=== PATIENT | female | born 1945 | race American Indian/Alaskan Native ===

== ENCOUNTER 2018-10-21 19:26 | Inpatient (IN) | payer SELFPAY ==
--- NOTE | 2018-10-21 20:05 | C.PDOC ---
History Of Present Illness 73 year old female presents to the ED c/o dizziness associated with a couple of falls for the past 2 weeks. Patient is non insulin dependent diabetic with history of previous strokes with residual mild right sided weakness. Patient is visiting from [place]. Patient denies fever, chills, nausea, vomit, headache, LOC, numbness, CP, SOB, palpitations. Time Seen by Provider: 10/21/18 20:05 Chief Complaint (Nursing): Dizziness/Lightheaded History Per: Patient History/Exam Limitations: no limitations Onset/Duration Of Symptoms: Days Current Symptoms Are (Timing): Still Present Associated Symptoms Preceding Syncopal Episode: No Predromal Symptoms (Sudden Onset) Seizure Or Post-ictal Symptoms: None Possible Causative Factor(s): denies: New Medications Fall Associated With With Symptoms: Yes Severity: None Recent travel outside of the [place]: No Additional History Per: Patient, Family - Symptoms Of CVA Associated Symptoms: Decreased Ability To Walk Current Coumadin Use?: No Past Medical History Reviewed: Historical Data, Nursing Documentation, Vital Signs Vital Signs: Last Vital Signs Temp 97 F L 10/21/18 19:39 Pulse 65 10/21/18 19:39 Resp 14 10/21/18 19:39 BP 150/63 10/21/18 19:39 Pulse Ox 97 10/21/18 19:39 - Medical History PMH: HTN, Hypercholesterolemia Surgical History: No Surg Hx Family History: States: Unknown Family Hx - Social History Hx Alcohol Use: No Hx Substance Use: No - Immunization History Hx Tetanus Toxoid Vaccination: Yes Hx Influenza Vaccination: Yes Hx Pneumococcal Vaccination: Yes Review Of Systems Constitutional: Negative for: Fever, Chills Eyes: Negative for: Vision Change Cardiovascular: Negative for: Chest Pain, Palpitations Respiratory: Negative for: Cough, Shortness of Breath Gastrointestinal: Negative for: Nausea, Vomiting, Abdominal Pain Musculoskeletal: Negative for: Back Pain Skin: Negative for: Rash Neurological: Positive for: Weakness, Dizziness. Negative for: Numbness, Headache Psych: Negative for: Anxiety Physical Exam - Physical Exam Appears: Non-toxic, No Acute Distress Skin: Warm, Dry Head: Normacephalic Eye(s): bilateral: Normal Inspection Teeth: No Normal Dentition (poor dentition) Neck: Supple Chest: Symmetrical Cardiovascular: Rhythm Regular Respiratory: No Rales, No Rhonchi, No Wheezing Gastrointestinal/Abdominal: Soft, No Tenderness, No Guarding, No Rebound Back: Normal Inspection Extremity: No Tenderness Extremity: Bilateral: Atraumatic, Normal Color And Temperature Pulses: Left Dorsalis Pedis: Normal, Right Dorsalis Pedis: Normal Neurological/Psych: Oriented x3, Normal Speech, Normal Cognition, Normal Motor (right sided weakness baseline), Normal Sensation Gait: With Assistance ED Course And Treatment - Laboratory Results Result Diagrams: 10/21/18 20:14 10/21/18 20:14 ECG: Interpreted By Me, Viewed By Me ECG Rhythm: Sinus Rhythm (65), Nonspecific Changes O2 Sat by Pulse Oximetry: 97 Pulse Ox Interpretation: Normal - Radiology CXR: Interpreted by Me, Viewed By Me CXR Interpretation: No: Infiltrates, Fracture, Pnemothorax - CT Scan/US CT head Other Rad Studies (CT/US): Read By Radiologist, Radiology Report Reviewed CT/US Interpretation: EXAM: CT Head without Intravenous Contrast. CLINICAL HISTORY: Dizzy. TECHNIQUE: Axial computed tomography images of the head/brain without intravenous contrast. 0.00 mGy-cm. COMPARISON: None provided. FINDINGS: BRAIN. Chronic periventricular and subcortical microvascular disease is seen. VENTRICLES: There is generalized parenchymal atrophy noted as demonstrated by symmetrical dilatation of ventricles and sulci. ORBITS: The orbits are unremarkable. SINUSES AND MASTOIDS: The paranasal sinuses and mastoid air cells are clear. BONES: No fracture. SOFT TISSUES: Unremarkable. MISCELLANEOUS: No acute intracranial pathology. IMPRESSION: 1. There is generalized parenchymal atrophy noted as demonstrated by symmetrical dilatation of ventricles and sulci. 2. Chronic periventricular and subcortical microvascular disease is seen. 3. No acute intracranial pathology. . Electronically signed on Oct 21, 2018 8:45:03 PM EST by: Cy Ayala M.D., SANDRA Certified By ABR & CBCCT. Fellowship Trained MRI and CT Specialist Progress Note: Plan: - Labs. - CXR. - UA Disposition Discussed With : Aron Riley Comment: accepted the pt on his service and took over the care at 9:33 PM Doctor Will See Patient In The: ED Counseled Patient/Family Regarding: Studies Performed, Diagnosis - Disposition Disposition: HOSPITALIZED Disposition Time: 20:05 Condition: FAIR Forms: [facility] (Hebrew) - POA Present On Arrival: None - Clinical Impression Clinical Impression: Dizziness, Near syncope - Scribe Statement The provider has reviewed the documentation as recorded by the Scribe Danial Masterson All medical record entries made by the Scribe were at my direction and personally dictated by me. I have reviewed the chart and agree that the record a ccurately reflects my personal performance of the history, physical exam, medical decision making, and the department course for this patient. I have also personally directed, reviewed, and agree with the discharge instructions and disposition. Decision To Admit - Pt Status Changed To: Hospital Disposition Of: Inpatient - Admit Certification Admit to Inpatient:: After my assessment, the patient will require hospitalization for at least two midnights. This is because of the severity of symptoms shown, intensity of services needed, and/or the medical risk in this patient being treated as an outpatient. - InPatient: Physician Admission Certification: I certify that this patient requires 2 or more midnights of care for the following reason:: After my assessment, the patient will require hospitalization for at least two midnights. This is because of the severity of symptoms shown, intensity of services needed, and/or the medical risk in this patient being treated as an outpatient. - . Bed Request Type: Telemetry Admitting Physician: Aron Riley Patient Diagnosis: Dizziness, Near syncope
[2018-10-21 20:24] LABS: BASO # 0.1 K/uL (0.0-0.2); BASO % 1.2 % (0.0-2.0); EOS # 0.4 K/uL (0.0-0.7); EOS % 7.1 % (0.0-4.0); HEMOGLOBIN 12.5 g/dL (11.0-16.0); LYMPH # 1.7 K/uL (1.0-4.3); LYMPH % 31.8 % (20.0-40.0); MEAN CELL VOLUME 89.4 fL (81.0-99.0); MEAN CORPUSCULAR HEMOGLOBIN 29.4 pg (27.0-31.0); MEAN CORPUSCULAR HGB CONC 32.9 g/dL (33.0-37.0); MEAN PLATELET VOLUME 9.1 fL (7.2-11.7); MONO # 0.5 K/uL (0.0-0.8); MONO % 9.3 % (0.0-10.0); NEUT # 2.7 K/uL (1.8-7.0); NEUT % 50.6 % (50.0-75.0); RBC 4.25 Mil/uL (3.80-5.20); RED CELL DISTRIBUTION WIDTH 14.6 % (11.5-14.5); WHITE BLOOD COUNT 5.4 K/uL (4.8-10.8)
[2018-10-21 20:40] LABS: ALB/GLOB RATIO 1.3 (1.0-2.1); ALBUMIN 3.9 g/dL (3.5-5.0); CALCIUM 9.5 mg/dl (8.6-10.4)
[2018-10-21 20:49] LABS: TROPONIN I 0.018 ng/mL (0.00-0.120)
[2018-10-21 20:55] LABS: INR 1.1; PROTHROMBIN TIME 12.5 SECONDS (9.7-12.2)
--- NOTE | 2018-10-22 02:38 | CP.PCM.HP ---
<Chair Olivares - Last Filed: 10/22/18 08:08> History of Present Illness - History of Present Illness History of Present Illness: CC "dizziness" HPI: Patient is a 73 year old female with history of NIDDM, 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 Patient is visiting from [place]. She states she uses a walker to ambulate and has had a few falls over the past 2 weeks. Daughter at bedside states she slid off the bed and landed on her buttock region prior to arrival. Daughter denies loss of consciousness. Prior to the past 2 weeks, patient has been able to feed herself with her left hand, because she has residual right sided weakness. She states that her right sided weakness has become slightly worse over the past 2 weeks. Daughter states she has noticed that patient has not been eating and has been skipping food. She denies coughing or choking on her food. Patient simply states she has a poor appetite and does not want to eat. She denies fevers, chills, headache, chest pain, shortness of breath, abdominal pain, nausea, vomiting, diarrhea, constipation, leg pain or swelling. Daughter denies history of CAD with stent but unsure of heart failure. 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 Currently visiting from [place]. Allergies: NKDA Present on Admission - Present on Admission Any Indicators Present on Admission: No Review of Systems - Constitutional Constitutional: Weakness. absent: Chills, Fever, Headache - EENT Eyes: absent: Change in Vision Ears: Dizziness Nose/Mouth/Throat: absent: Nasal Congestion, Post Nasal Drip, Sore Throat - Cardiovascular Cardiovascular: absent: Chest Pain, Dyspnea, Lightheadedness, Palpitations - Respiratory Respiratory: absent: Cough, Dyspnea - Gastrointestinal Gastrointestinal: absent: Abdominal Pain, Diarrhea, Nausea, Vomiting - Genitourinary Genitourinary: absent: Change in Urinary Stream, Difficulty Urinating - Musculoskeletal Musculoskeletal: Muscle Weakness. absent: Back Pain, Numbness - Neurological Neurological: Dizziness, Focal Weakness. absent: Confusion - Psychiatric Psychiatric: absent: Anxiety, Depression Past Patient History - Past Medical History & Family History Past Medical History?: Yes - Past Social History Smoking Status: Former Smoker - CARDIAC Hx Hypercholesterolemia: Yes Hx Hypertension: Yes - NEUROLOGICAL HX Cerebrovascular Accident: Yes Hx Vertigo: Yes - RENAL Hx Chronic Kidney Disease: No - ENDOCRINE/METABOLIC Hx Diabetes Mellitus Type 2: Yes - PSYCHIATRIC Hx Substance Use: No - SURGICAL HISTORY Hx Herniorrhaphy: Yes - ANESTHESIA Hx Anesthesia: Yes Hx Anesthesia Reactions: No Hx Malignant Hyperthermia: No Has any member of the family had a problem w/ anesthesia?: No Meds Allergies/Adverse Reactions: Allergies Allergy/AdvReac Type Severity Reaction Status Date / Time No Known Allergies Allergy Unverified 10/21/18 19:44 Physical Exam - Constitutional Appears: Well, Non-toxic, No Acute Distress - Head Exam Head Exam: ATRAUMATIC, NORMOCEPHALIC - Eye Exam Eye Exam: EOMI (Extraocular movements intact, however patient states that she has double vision in her right visual field ), PERRL. absent: Conjunctival injection, Nystagmus, Periorbital swelling, Periorbital tenderness, Scleral icterus - ENT Exam ENT Exam: Mucous Membranes Moist, Normal Oropharynx - Neck Exam Neck exam: Positive for: Full Rom. Negative for: Lymphadenopathy, Tenderness, Thyromegaly - Respiratory Exam Respiratory Exam: Clear to Auscultation Bilateral. absent: Rales, Rhonchi, Wheezes, Respiratory Distress, Stridor - Cardiovascular Exam Cardiovascular Exam: REGULAR RHYTHM, +S1, +S2. absent: Gallop, Rubs, Systolic Murmur - GI/Abdominal Exam GI & Abdominal Exam: Normal Bowel Sounds, Soft. absent: Distended, Firm, Guarding, Hernia, Rigid, Tenderness - Extremities Exam Extremities exam: Positive for: pedal pulses present (pulses present but weak equally. ). Negative for: calf tenderness, pedal edema - Neurological Exam Additional comments: Slurred speech Reports double vision in right visual field Right upper and lower extremity weaker than left Finger to nose: Able to complete bilaterally, but slow Heel to kelly: right leg weak - unable to complete. Left leg slow Sensation equal in upper and lower extremities Gait not tested given recent fall. - Psychiatric Exam Psychiatric exam: Normal Affect, Normal Mood - Skin Additional comments: Right elbow ecchymosis Fissure to right gluteal region Results - Vital Signs Recent Vital Signs: Last Vital Signs Temp 98.1 F 10/21/18 23:17 Pulse 67 10/21/18 23:17 Resp 16 10/21/18 23:17 BP 156/69 H 10/21/18 23:17 Pulse Ox 99 10/21/18 23:17 - Labs Result Diagrams: 10/22/18 06:10 10/22/18 06:10 Labs: Laboratory Results - last 24 hr 10/21/18 10/21/18 10/21/18 19:41 20:14 20:14 WBC 5.4 RBC 4.25 Hgb 12.5 Hct 38.0 MCV 89.4 MCH 29.4 MCHC 32.9 L RDW 14.6 H Plt Count 187 MPV 9.1 Neut % (Auto) 50.6 Lymph % (Auto) 31.8 Crowley % (Auto) 9.3 Eos % (Auto) 7.1 H Baso % (Auto) 1.2 Neut # (Auto) 2.7 Lymph # (Auto) 1.7 Crowley # (Auto) 0.5 Eos # (Auto) 0.4 Baso # (Auto) 0.1 PT 12.5 H INR 1.1 APTT 35 H Sodium Potassium Chloride Carbon Dioxide Anion Gap BUN Creatinine Est GFR ( Amer) Est GFR (Non-Af Amer) POC Glucose (mg/dL) 89 Random Glucose Calcium Total Bilirubin AST ALT Alkaline Phosphatase Troponin I Total Protein Albumin Globulin Albumin/Globulin Ratio 10/21/18 20:14 WBC RBC Hgb Hct MCV MCH MCHC RDW Plt Count MPV Neut % (Auto) Lymph % (Auto) Crowley % (Auto) Eos % (Auto) Baso % (Auto) Neut # (Auto) Lymph # (Auto) Crowley # (Auto) Eos # (Auto) Baso # (Auto) PT INR APTT Sodium 141 Potassium 4.6 Chloride 107 Carbon Dioxide 26 Anion Gap 12 BUN 29 H Creatinine 1.4 H Est GFR ( Amer) 44 Est GFR (Non-Af Amer) 37 POC Glucose (mg/dL) Random Glucose 99 Calcium 9.5 Total Bilirubin 0.5 AST 27 ALT 19 Alkaline Phosphatase 76 Troponin I 0.0180 Total Protein 6.9 Albumin 3.9 Globulin 3.0 Albumin/Globulin Ratio 1.3 Assessment & Plan - Assessment and Plan (Free Text) Assessment: 73 year old female with history of NIDDM, CVA x2, HTN, HLD, COPD who presents for 2 week history of dizziness and falls. Plan: Dizziness CT head: There is generalized parenchymal atrophy noted as demonstrated by symmetrical dilatation of ventricles and sulci. 2. Chronic periventricular and subcortical microvascular disease is seen. 3. No acute intracranial pathology. f/u MRI brain f/u ECHO f/u carotid dopplers Neurology Dr. Lyn consulted, help appreciated NS IV fluids f/u UA, urine culture, blood culture to r/o infection. EKG SR at 65 CXR: negative Falls CT head 1. There is generalized parenchymal atrophy noted as demonstrated by symmetrical dilatation of ventricles and sulci. 2. Chronic periventricular and subcortical microvascular disease is seen. 3. No acute intracranial pathology. PT/OT eval Fall risk precautions Hx of prior CVA with residual right sided weakness On ASA, Crestor PT/OT eval Fall risk precautions Hx of possible heart failure f/u BNP f/u ECHO Hx of Type 2 DM ISS At home, on Saxagliptin/Metformin combination, held here Hypoglycemia treatment protocol Hx of HTN Lisinopril 5mg PO daily Norvasc 10mg PO daily HCTZ 12.5mg PO daily Hx of HLD Crestor 20mg PO HS Hx of COPD Continue to monitor O2 status PPX: Heparin 5000 unit SC Q8 Protonix 40mg IVP PT/OT/speech Diet if pass swallow eval Case discussed with Dr. Osvaldo Olivares, PGY1 <Aron Riley P - Last Filed: 10/23/18 08:32> Results - Vital Signs Recent Vital Signs: Last Vital Signs Temp 97.2 F L 10/23/18 08:00 Pulse 67 10/23/18 08:00 Resp 18 10/23/18 08:00 BP 153/76 H 10/23/18 08:00 Pulse Ox 100 10/23/18 08:00 - Labs Result Diagrams: 10/22/18 06:10 10/22/18 06:10 Labs: Laboratory Results - last 24 hr 10/22/18 10/22/18 10/22/18 06:10 10:04 11:24 Sodium 138 Potassium 4.5 Chloride 107 Carbon Dioxide 23 Anion Gap 12 BUN 25 H Creatinine 1.0 Est GFR ( Amer) > 60 Est GFR (Non-Af Amer) 54 POC Glucose (mg/dL) 135 H Random Glucose 70 D Hemoglobin A1c 5.7 Calcium 9.4 Phosphorus 3.6 Magnesium 1.8 Total Bilirubin 0.6 AST 29 ALT 24 Alkaline Phosphatase 71 NT-Pro-B Natriuret Pep 487 Total Protein 6.9 Albumin 3.8 Globulin 3.1 Albumin/Globulin Ratio 1.2 Triglycerides 75 Cholesterol 113 LDL Cholesterol Direct 51 HDL Cholesterol 49 Vitamin B12 Cancelled Folate Cancelled TSH 3rd Generation Cancelled Influenza Typ A,B (EIA) 10/22/18 10/22/18 10/22/18 14:23 16:23 18:50 Sodium Potassium Chloride Carbon Dioxide Anion Gap BUN Creatinine Est GFR ( Amer) Est GFR (Non-Af Amer) POC Glucose (mg/dL) 108 Random Glucose Hemoglobin A1c Calcium Phosphorus Magnesium Total Bilirubin AST ALT Alkaline Phosphatase NT-Pro-B Natriuret Pep Total Protein Albumin Globulin Albumin/Globulin Ratio Triglycerides Cholesterol LDL Cholesterol Direct HDL Cholesterol Vitamin B12 882 Folate > 20.0 TSH 3rd Generation 0.99 Influenza Typ A,B (EIA) Negative for flu a/b 10/22/18 10/23/18 21:19 07:41 Sodium Potassium Chloride Carbon Dioxide Anion Gap BUN Creatinine Est GFR ( Amer) Est GFR (Non-Af Amer) POC Glucose (mg/dL) 144 H 115 H Random Glucose Hemoglobin A1c Calcium Phosphorus Magnesium Total Bilirubin AST ALT Alkaline Phosphatase NT-Pro-B Natriuret Pep Total Protein Albumin Globulin Albumin/Globulin Ratio Triglycerides Cholesterol LDL Cholesterol Direct HDL Cholesterol Vitamin B12 Folate TSH 3rd Generation Influenza Typ A,B (EIA) Attending/Attestation - Attestation I have personally seen and examined this patient.: Yes I have fully participated in the care of the patient.: Yes I have reviewed all pertinent clinical information: Yes Notes (Text): 10/23/18 08:29 Suspect new CVA in relation to brain stem, cerebellar region with marked slurring, instable gait, poor intake, patient is other king alert oriented x3, h/o dm, htn, prior cva with right sided weakness. Plan MRI Echo Home meds PT/OT GI/DVT prophylaxis ASA, statin Neurology consult See orders for detail.
[2018-10-22] MEDS: Sodium Chloride 0.9% 1,000 ML IV SCH ×3 (03:24→15:34)
[2018-10-22 04:13] LABS: SQUAMOUS EPITHIAL 9 /hpf (0-5); URINE BACTERIA OCC (<OCC); URINE BILIRUBIN NEGATIVE (NEGATIVE); URINE BLOOD NEGATIVE (NEGATIVE); URINE CLARITY Hazy (Clear); URINE COLOR Yellow (YELLOW); URINE GLUCOSE (UA) NORMAL (Normal); URINE LEUKOCYTE ESTERASE 2+ Leu/uL (Negative); URINE PROTEIN NEGATIVE (NEGATIVE); URINE UROBILINOGEN NORMAL mg/dL (0.2-1.0)
[2018-10-22 06:23] LABS: BASO # 0.1 K/uL (0.0-0.2); BASO % 1.2 % (0.0-2.0); EOS # 0.4 K/uL (0.0-0.7); EOS % 6.9 % (0.0-4.0); HEMOGLOBIN 12.5 g/dL (11.0-16.0); LYMPH # 2.5 K/uL (1.0-4.3); LYMPH % 38.9 % (20.0-40.0); MEAN CELL VOLUME 89.1 fL (81.0-99.0); MEAN CORPUSCULAR HEMOGLOBIN 30.1 pg (27.0-31.0); MEAN CORPUSCULAR HGB CONC 33.7 g/dL (33.0-37.0); MEAN PLATELET VOLUME 9.2 fL (7.2-11.7); MONO # 0.5 K/uL (0.0-0.8); MONO % 8.1 % (0.0-10.0); NEUT # 2.8 K/uL (1.8-7.0); NEUT % 44.9 % (50.0-75.0); RBC 4.17 Mil/uL (3.80-5.20); RED CELL DISTRIBUTION WIDTH 14.4 % (11.5-14.5); WHITE BLOOD COUNT 6.3 K/uL (4.8-10.8)
[2018-10-22 06:48] LABS: ALB/GLOB RATIO 1.2 (1.0-2.1); ALBUMIN 3.8 g/dL (3.5-5.0); ALT/SGPT 24 U/L (9-52); AST/SGOT 29 U/L (14-36); BLOOD UREA NITROGEN 25 mg/dL (7-17); CALCIUM 9.4 mg/dl (8.6-10.4); GFR NON-AFRICAN AMERICAN 54
[2018-10-22] MEDS ORDERED: Dextrose 50% SYRINGE Inj (50 ml) IV PRN (07:20)
[2018-10-22] MEDS ORDERED: Glucagon Recombinant 1 mg Inj IM PRN (07:20)
[2018-10-22] MEDS: (Novolin R) Insulin Human Regular 100 units/ml vial SC SCH ×4 (07:34→22:00)
--- NOTE | 2018-10-22 08:38 | CT ---
Date of service: 10/21/2018 PROCEDURE: CT HEAD WITHOUT CONTRAST. HISTORY: dizzyness COMPARISON: None available. TECHNIQUE: Axial computed tomography images were obtained through the head/brain without intravenous contrast. Radiation dose: Total exam DLP = 918.06 mGy-cm. This CT exam was performed using one or more of the following dose reduction techniques: Automated exposure control, adjustment of the mA and/or kV according to patient size, and/or use of iterative reconstruction technique. FINDINGS: HEMORRHAGE: No intracranial hemorrhage. BRAIN: There are mild chronic microangiopathic changes. There is no mass, mass effect or abnormal extra-axial fluid collection. There is no territorial infarction. The midline sagittal structures are normal. VENTRICLES: There is mild age-related global parenchymal volume loss and proportionate enlargement of the ventricles and cortical sulci. CALVARIUM: There is no calvarial fracture or extracranial soft tissue swelling. PARANASAL SINUSES: Predominantly clear. MASTOID AIR CELLS: Predominantly clear. OTHER FINDINGS: None. IMPRESSION: No acute intracranial abnormality. Mild chronic microangiopathic changes and mild age-related global parenchymal volume loss.
[2018-10-22 09:01] LABS: B-TYPE NATRIURETIC PEPTIDE 487 pg/mL (0-900)
--- NOTE | 2018-10-22 09:26 | CP.PCM.CON ---
History of Present Illness - History of Present Illness History of Present Illness: Patient is a 73 year old female visiting from [place] with PMHx of CVA x2, DM, HLD, HTN, COPD who presents with daughter for 2 week history of progressively worsening dizziness/unsteadiness. Pt has sustained multiple falls over past 2 weeks, ambulates with walker; denies LOC. Pt has residual right sided upper extremity weakness from previous CVA(last being in 12/13), which she reports has worsened over the past 2 weeks. Pt reports decreased appetite; denies headache, fevers, chest pain, nausea. Review of Systems - Review of Systems Systems not reviewed;Unavailable: Acuity of Condition - Constitutional Constitutional: Anorexia, Frequent Falls - Cardiovascular Cardiovascular: absent: Chest Pain, Dyspnea - Respiratory Respiratory: absent: Dyspnea - Gastrointestinal Gastrointestinal: absent: Vomiting - Musculoskeletal Musculoskeletal: Abnormal Gait, Arthralgias (right knee and right shoulder pain) - Neurological Neurological: Abnormal Gait, Disequilibrium, Dizziness, Frequent Falls, Vertigo, Weakness (right sided\) Past Patient History - Past Medical History & Family History Past Medical History?: Yes - Past Social History Smoking Status: Former Smoker - CARDIAC Hx Hypercholesterolemia: Yes Hx Hypertension: Yes - NEUROLOGICAL HX Cerebrovascular Accident: Yes Hx Vertigo: Yes - RENAL Hx Chronic Kidney Disease: No - ENDOCRINE/METABOLIC Hx Diabetes Mellitus Type 2: Yes - MUSCULOSKELETAL/RHEUMATOLOGICAL Hx Falls: Yes - PSYCHIATRIC Hx Substance Use: No - SURGICAL HISTORY Hx Herniorrhaphy: Yes - ANESTHESIA Hx Anesthesia: Yes Hx Anesthesia Reactions: No Hx Malignant Hyperthermia: No Has any member of the family had a problem w/ anesthesia?: No Meds Allergies/Adverse Reactions: Allergies Allergy/AdvReac Type Severity Reaction Status Date / Time No Known Allergies Allergy Unverified 10/21/18 19:44 - Medications Medications: Current Medications Amlodipine Besylate (Norvasc) 10 mg PO DAILY [facility] Aspirin (Aspirin Chewable) 81 mg PO DAILY [facility] Dextrose (Dextrose 50% Inj) 0 ml IV STAT PRN; Protocol PRN Reason: Hypoglycemia Protocol Dextrose (Glutose 15) 0 gm PO ONCE PRN; Protocol PRN Reason: Hypoglycemia Protocol Glucagon (Glucagen Diagnostic Kit) 0 mg IM STAT PRN; Protocol PRN Reason: Hypoglycemia Protocol Heparin Sodium (Porcine) (Heparin) 5,000 units SC Q8 [facility] Last Admin: 10/22/18 06:42 Dose: 5,000 units Hydrochlorothiazide (Microzide) 12.5 mg PO DAILY [facility] Sodium Chloride (Sodium Chloride 0.9%) 1,000 mls @ 100 mls/hr IV .Q10H [facility] Last Admin: 10/22/18 03:24 Dose: 100 mls/hr Dextrose (Dextrose 5% In Water 1000 Ml) 1,000 mls @ 0 mls/hr IV .Q0M PRN; Protocol PRN Reason: Hypoglycemia Protocol Insulin Human Regular (Novolin R) 0 unit SC ACHS [facility]; Protocol Last Admin: 10/22/18 07:34 Dose: Not Given Lisinopril (Zestril) 5 mg PO DAILY [facility] Pantoprazole Sodium (Protonix Inj) 40 mg IVP DAILY [facility] Rosuvastatin Calcium (Crestor) 10 mg PO HS [facility] Physical Exam - Constitutional Appears: Non-toxic, No Acute Distress - Head Exam Head Exam: ATRAUMATIC (right parietal hematome) - Eye Exam Eye Exam: EOMI, Normal appearance. absent: Nystagmus - ENT Exam ENT Exam: Mucous Membranes Moist, Normal Exam - Neck Exam Neck exam: Positive for: Normal Inspection - Respiratory Exam Respiratory Exam: NORMAL BREATHING PATTERN. absent: Respiratory Distress - Cardiovascular Exam Cardiovascular Exam: REGULAR RHYTHM - GI/Abdominal Exam GI & Abdominal Exam: Soft. absent: Distended - Neurological Exam Neurological exam: Alert, Oriented x3 Additional comments: RUE/RLE 4/5 motor LUE/LLE 5/5 facial droop, garbled speech - Psychiatric Exam Psychiatric exam: Normal Affect, Normal Mood - Skin Skin Exam: Dry, Intact, Normal Color, Warm Results - Vital Signs Recent Vital Signs: Last Vital Signs Temp 97.6 F 10/22/18 04:00 Pulse 69 10/22/18 04:00 Resp 18 10/22/18 04:00 BP 157/74 H 10/22/18 04:00 Pulse Ox 99 10/22/18 04:00 - Labs Result Diagrams: 10/22/18 06:10 10/22/18 06:10 Labs: Laboratory Results - last 24 hr 10/21/18 10/21/18 10/21/18 19:41 20:14 20:14 WBC 5.4 RBC 4.25 Hgb 12.5 Hct 38.0 MCV 89.4 MCH 29.4 MCHC 32.9 L RDW 14.6 H Plt Count 187 MPV 9.1 Neut % (Auto) 50.6 Lymph % (Auto) 31.8 [place] % (Auto) 9.3 Eos % (Auto) 7.1 H Baso % (Auto) 1.2 Neut # (Auto) 2.7 Lymph # (Auto) 1.7 [place] # (Auto) 0.5 Eos # (Auto) 0.4 Baso # (Auto) 0.1 PT 12.5 H INR 1.1 APTT 35 H Sodium Potassium Chloride Carbon Dioxide Anion Gap BUN Creatinine Est GFR ( Amer) Est GFR (Non-Af Amer) POC Glucose (mg/dL) 89 Random Glucose Calcium Phosphorus Magnesium Total Bilirubin AST ALT Alkaline Phosphatase Troponin I NT-Pro-B Natriuret Pep Total Protein Albumin Globulin Albumin/Globulin Ratio Urine Color Urine Clarity Urine pH Ur Specific [place] Urine Protein Urine Glucose (UA) Urine Ketones Urine Blood Urine Nitrate Urine Bilirubin Urine Urobilinogen Ur Leukocyte Esterase Urine WBC (Auto) Urine RBC (Auto) Ur Squamous Epith Cells Urine Bacteria Hyaline Casts 10/21/18 10/22/18 10/22/18 20:14 04:02 06:10 WBC 6.3 RBC 4.17 Hgb 12.5 Hct 37.1 MCV 89.1 MCH 30.1 MCHC 33.7 RDW 14.4 Plt Count 176 MPV 9.2 Neut % (Auto) 44.9 L Lymph % (Auto) 38.9 [place] % (Auto) 8.1 Eos % (Auto) 6.9 H Baso % (Auto) 1.2 Neut # (Auto) 2.8 Lymph # (Auto) 2.5 [place] # (Auto) 0.5 Eos # (Auto) 0.4 Baso # (Auto) 0.1 PT INR APTT Sodium 141 Potassium 4.6 Chloride 107 Carbon Dioxide 26 Anion Gap 12 BUN 29 H Creatinine 1.4 H Est GFR ( Amer) 44 Est GFR (Non-Af Amer) 37 POC Glucose (mg/dL) Random Glucose 99 Calcium 9.5 Phosphorus Magnesium Total Bilirubin 0.5 AST 27 ALT 19 Alkaline Phosphatase 76 Troponin I 0.0180 NT-Pro-B Natriuret Pep Total Protein 6.9 Albumin 3.9 Globulin 3.0 Albumin/Globulin Ratio 1.3 Urine Color Yellow Urine Clarity Hazy Urine pH 5.0 Ur Specific [place] 1.014 Urine Protein Negative Urine Glucose (UA) Normal Urine Ketones Negative Urine Blood Negative Urine Nitrate Negative Urine Bilirubin Negative Urine Urobilinogen Normal Ur Leukocyte Esterase 2+ H Urine WBC (Auto) 6 H Urine RBC (Auto) 6 H Ur Squamous Epith Cells 9 H Urine Bacteria Occ H Hyaline Casts 3-5 H 10/22/18 10/22/18 06:10 07:33 WBC RBC Hgb Hct MCV MCH MCHC RDW Plt Count MPV Neut % (Auto) Lymph % (Auto) [place] % (Auto) Eos % (Auto) Baso % (Auto) Neut # (Auto) Lymph # (Auto) [place] # (Auto) Eos # (Auto) Baso # (Auto) PT INR APTT Sodium 138 Potassium 4.5 Chloride 107 Carbon Dioxide 23 Anion Gap 12 BUN 25 H Creatinine 1.0 Est GFR ( Amer) > 60 Est GFR (Non-Af Amer) 54 POC Glucose (mg/dL) 80 Random Glucose 70 D Calcium 9.4 Phosphorus 3.6 Magnesium 1.8 Total Bilirubin 0.6 AST 29 ALT 24 Alkaline Phosphatase 71 Troponin I NT-Pro-B Natriuret Pep 487 Total Protein 6.9 Albumin 3.8 Globulin 3.1 Albumin/Globulin Ratio 1.2 Urine Color Urine Clarity Urine pH Ur Specific [place] Urine Protein Urine Glucose (UA) Urine Ketones Urine Blood Urine Nitrate Urine Bilirubin Urine Urobilinogen Ur Leukocyte Esterase Urine WBC (Auto) Urine RBC (Auto) Ur Squamous Epith Cells Urine Bacteria Hyaline Casts Assessment & Plan - Assessment and Plan (Free Text) Assessment: 73 year old female w/ PMHx of CVA x2, DM, HLD, HTN, COPD admitted for evaluation of 2 weeks of progressive vertigo/unsteadiness associated with multiple falls Plan: -Head CT shows no acute pathology. Mild chronic microangiopathic changes. Mild age related global parenchymal vomule loss. -f/u MRI brain to rule out cerebellar etiology. -F/U echo -ASA, crestor, heparin -PT/OT/ST Discussed with Dr. Riki Moore, PGY-1 a/p: 73 yr old woman with extensive pmh and risk factors for stroke. She currently has a nonfocal exam, but has severe dizziness. I do not believe this is cerebellar, but we will obtain MRI Brain without karena and echo. There is no old stroke visualized on the ct scan. I agree with the residents note and saw the patient independently, and helped her to formulate the note. Dr. gregg Neurology
--- NOTE | 2018-10-22 09:45 | RAD ---
Date of service: 10/21/2018 PROCEDURE: CHEST RADIOGRAPH, 1 VIEW HISTORY: chest pain COMPARISON: None available. FINDINGS: LUNGS: The lungs are well inflated and clear. PLEURA: No pneumothorax or pleural effusion. CARDIOVASCULAR: The heart is normal in size. There are aortic atherosclerotic calcifications present. OSSEOUS STRUCTURES: Within normal limits for the patient's age. VISUALIZED UPPER ABDOMEN: Normal. OTHER FINDINGS: None. IMPRESSION: No active pulmonary disease.
[2018-10-22 10:24] LABS: HDL CHOLESTEROL 49 mg/dL (30-70); LDL CHOLESTEROL 51 mg/dL (0-129)
--- NOTE | 2018-10-22 12:55 | MRI ---
Date of service: 10/22/2018 PROCEDURE: MRI BRAIN WITHOUT CONTRAST HISTORY: dizziness, right sided weakness COMPARISON: None available. TECHNIQUE: Multiplanar, multisequence MR images of the brain were obtained without intravenous contrast enhancement. FINDINGS: HEMORRHAGE: None DWI: No evidence of an acute or early subacute infarction. BRAIN PARENCHYMA: No mass effect or edema. There is mild volume loss noted. There are few nonspecific foci of hyperintense T2 and FLAIR signal noted in the white matter. The largest focus is seen at the right frontal lobe measures 0.65 centimeter. Findings may represent chronic microvascular ischemic changes. There is encephalomalacia and gliosis at the right cerebellum suggestive of old infarct. VENTRICLES: Unremarkable. No hydrocephalus. CRANIUM: Unremarkable. ORBITS: Grossly unremarkable. PARANASAL SINUSES/MASTOIDS: Clear VASCULAR SYSTEM: Skull base flow voids intact. OTHER FINDINGS: None. IMPRESSION: No evidence of acute intracranial hemorrhage or acute infarct. Mild atrophy. Few nonspecific foci of hyperintense T2 and FLAIR signal in the white matter likely represent chronic microvascular ischemic disease. Focal encephalomalacia and gliosis at the right cerebellum suggestive of small old infarct.
[2018-10-22 15:50] LABS: FOLATE > 20.0 ng/mL
[2018-10-22] MEDS ORDERED: Albuterol-Ipratrop 3 mg / 0.5 (3 ml) UD INH PRN (17:33)
--- NOTE | 2018-10-22 18:15 | CP.PCM.PN ---
Subjective - Date & Time of Evaluation Date of Evaluation: 10/22/18 Time of Evaluation: 09:00 - Subjective Subjective: PGY-[address] Mark Fonseca Service Patient is seen and examined at bedside. Patient's daugther present at bedside and contributed to the details of this encounter. Patient reports no acute changes overnight. Patient continues to feel dizziness especially when getting up from bed. Patient feels weak, however reports no changes in her weakness. Patient and daugther admit to history of previous 3 CVAs, the last one happening in november of this year. Patient is noticed to have slurred speech and admits to being weak on her right arm and leg. Patient denies any fever, chills, chest pain, shortness of breath, nausea, vomiting, diarrhea, constipation or urinary complaints. Objective - Vital Signs/Intake and Output Vital Signs (last 24 hours): Temp Pulse Resp BP Pulse Ox 97.4 F L 69 18 159/70 H 98 10/22/18 16:00 10/22/18 16:00 10/22/18 16:00 10/22/18 16:00 10/22/18 08:00 Intake and Output: 10/22/18 10/22/18 06:59 18:59 Intake Total 1100 Output Total 900 Balance 200 - Medications Medications: Current Medications Albuterol/Ipratropium (Duoneb 3 Mg/0.5 Mg (3 Ml) Ud) 3 ml INH RQ6 PRN PRN Reason: Shortness of Breath Amlodipine Besylate (Norvasc) 10 mg PO DAILY [facility] Last Admin: 10/22/18 09:31 Dose: 10 mg Aspirin (Aspirin Chewable) 81 mg PO DAILY [facility] Last Admin: 10/22/18 09:30 Dose: 81 mg Dextrose (Dextrose 50% Inj) 0 ml IV STAT PRN; Protocol PRN Reason: Hypoglycemia Protocol Dextrose (Glutose 15) 0 gm PO ONCE PRN; Protocol PRN Reason: Hypoglycemia Protocol Fluticasone/Vilanterol (Breo Ellipta 100-25 Mcg Inh) 1 puff INH RQD [facility] Glucagon (Glucagen Diagnostic Kit) 0 mg IM STAT PRN; Protocol PRN Reason: Hypoglycemia Protocol Heparin Sodium (Porcine) (Heparin) 5,000 units SC Q8 [facility] Last Admin: 10/22/18 13:19 Dose: 5,000 units Hydrochlorothiazide (Microzide) 12.5 mg PO DAILY [facility] Last Admin: 10/22/18 09:31 Dose: 12.5 mg Dextrose (Dextrose 5% In Water 1000 Ml) 1,000 mls @ 0 mls/hr IV .Q0M PRN; Protocol PRN Reason: Hypoglycemia Protocol Insulin Human Regular (Novolin R) 0 unit SC ACHS [facility]; Protocol Last Admin: 10/22/18 16:26 Dose: Not Given Lisinopril (Zestril) 5 mg PO DAILY [facility] Last Admin: 10/22/18 09:31 Dose: 5 mg Rosuvastatin Calcium (Crestor) 10 mg PO HS [facility] - Labs Labs: 10/22/18 06:10 10/22/18 06:10 PT 12.5 SECONDS (9.7-12.2) H 10/21/18 20:14 INR 1.1 10/21/18 20:14 APTT 35 SECONDS (21-34) H 10/21/18 20:14 - Constitutional Appears: Non-toxic, No Acute Distress - Head Exam Head Exam: ATRAUMATIC, NORMAL INSPECTION, NORMOCEPHALIC - Eye Exam Eye Exam: EOMI, Normal appearance, PERRL. absent: Scleral icterus Pupil Exam: NORMAL ACCOMODATION - ENT Exam ENT Exam: Mucous Membranes Moist, Normal Exam, Normal Oropharynx - Neck Exam Neck Exam: Full ROM, Normal Inspection. absent: Lymphadenopathy, Tenderness, Thyromegaly - Respiratory Exam Respiratory Exam: Clear to Ausculation Bilateral, NORMAL BREATHING PATTERN. absent: Rales, Rhonchi, Wheezes - Cardiovascular Exam Cardiovascular Exam: REGULAR RHYTHM, +S1, +S2 - GI/Abdominal Exam GI & Abdominal Exam: Soft, Normal Bowel Sounds - Extremities Exam Extremities Exam: Tenderness (when palpating Rt knee and foot ). 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 absent: Motor Sensory Deficit Neuro motor strength exam: Left Upper Extremity: 5, Right Upper Extremity: 2/1, Left Lower Extremity: 5, Right Lower Extremity: 2/1 Additional comments: Slurred speech Right upper and lower extremity weaker than left - Psychiatric Exam Psychiatric exam: Normal Affect, Normal Mood - Skin Skin Exam: Dry, Intact, Normal Color, Warm Assessment and Plan - Assessment and Plan (Free Text) Assessment: 73 year old female with history of NIDDM, CVA x2, HTN, HLD, COPD who presents for 2 week history of dizziness and falls. CT and MRI negative for acute findings. pending echo, xrays. PT/OT to evaluate patient, will follow recs for patient Plan: Dizziness EKG SR at 65 CXR: negative CT head: There is generalized parenchymal atrophy noted as demonstrated by symmetrical dilatation of ventricles and sulci. 2. Chronic periventricular and subcortical microvascular disease is seen. 3. No acute intracranial pathology. Neurology Dr. Lyn consulted - 73 yr old woman with extensive pmh and risk factors for stroke. She currently has a nonfocal exam, but has severe dizziness. I do not believe this is cerebellar, but we will obtain MRI Brain without karena and echo. There is no old stroke visualized on the ct scan -ASA, crestor, heparin. PT/OT/ST MRI 10/22/18- No evidence of acute intracraial hemorrhage or acute infarct, mild atrophy, focal nospecific foci of hyperintense T2 and FLAIR signal in the white matter likely represent chronic microvascular ischemic disease. Focal encephalomalacia and gliosis at the right cerebellum suggestive of small old infarct U/a - LES 2+, WBC 6, RBC 6 f/u Urine Cx and Blood Cx f/u ECHO f/u carotid dopplers NS IV fluids Orthostatic vitals - f/u Rapid flu test - f/u MRSA screen - stat - f/u Falls CT head 1. There is generalized parenchymal atrophy noted as demonstrated by symmetrical dilatation of ventricles and sulci. 2. Chronic periventricular and subcortical microvascular disease is seen. 3. No acute intracranial pathology. PT/OT eval Fall risk precautions Orthostatic vitals - f/u Right Elbow and shoulder Xray - f/u Bilateral Hip Xray -f/u Right Knee Xray -f/u Hx of prior CVA with residual right sided weakness On ASA, Crestor PT/OT eval Fall risk precautions Hx of possible heart failure BNP - 487 f/u ECHO Hx of Type 2 DM ISS At home, on Saxagliptin/Metformin combination, held here Hypoglycemia treatment protocol Hx of HTN Lisinopril 5mg PO daily Norvasc 10mg PO daily HCTZ 12.5mg PO daily Hx of HLD Crestor 10mg PO HS - renal dose adjusted Hx of COPD Duonebs RQ6 PRN Breo Ellipta 1 puff INH RQD [facility] Continue to monitor O2 status PPX: Heparin 5000 unit SC Q8 Protonix 40mg IVP PT/OT/speech Diet if pass swallow eval DISPO: Will follow up with PT/OT for patient's to be clear to go home vs [facility]. will be following up recs. will follow up studies/tests over the weekend. Patient to be discharged on Thursday10/25/2018. Plan discussed with Dr Mark Mcallister, PGY-1
--- NOTE | 2018-10-22 18:29 | CARD ---
APPROVED REPORT Date of service: 10/21/2018 EKG Measurement Heart [id number] <Conclusion> Sinus rhythm with 1st degree AV block Left anterior fascicular block ST & T wave abnormality, consider inferolateral ischemia Abnormal ECG
--- NOTE | 2018-10-22 20:47 | CARD ---
APPROVED REPORT Date of service: 10/22/2018 EXAM: Two-dimensional and M-mode echocardiogram with Doppler and color Doppler. Other Information Quality : GoodRhythm : INDICATION Dizziness and Vertigo RISK FACTORS Hypertension Hyperlipidemia 2D DIMENSIONS IVSd1.1 (0.7-1.1cm)LVDd4.5 (3.9-5.9cm) PWd1.4 (0.7-1.1cm)LA [id number] (18-58mL) LVDs3.7 (2.5-4.0cm)FS (%) 18.7 % LVEF (%)45.0 (>50%)LVEF (Méndez's)46.86 % M-Mode DIMENSIONS Left Atrium (MM)3.35 (2.5-4.0cm)IVSd1.07 (0.7-1.1cm) Aortic Root3.41 (2.2-3.7cm)LVDd5.51 (4.0-5.6cm) Aortic Cusp Exc.1.96 (1.5-2.0cm)PWd1.11 (0.7-1.1cm) FS (%) 29 %LVDs3.93 (2.0-3.8cm) LVEF (%)55 (>50%) Mitral Valve MV E Vpezueze62.9cm/sMV A Sckmflhr268.0cm/sE/A ratio0.5 TDI Lateral E' Peak V3.58cm/sMedial E' Peak V2.61cm/sE/Lateral E'14.8 E/Medial E'20.3 Tricuspid Valve TR Peak [id number]/sTR Peak Gr.[id number] LEFT VENTRICLE The left ventricle is normal size. There is normal left ventricular wall thickness. Left ventricle systolic function is normal. The Ejection Fraction is 50-55%. There is normal LV segmental wall motion. Tissue Doppler imaging reveals abnormal left ventricular diastolic dysfunction. RIGHT VENTRICLE The right ventricle is normal size. There is normal right ventricular wall thickness. The right ventricular systolic function is normal. ATRIA The left atrium size is normal. The right atrium size is normal. The interatrial septum is intact with no evidence for an atrial septal defect. AORTIC VALVE The aortic valve is normal in structure. No aortic regurgitation is present. There is no aortic valvular stenosis. MITRAL VALVE The mitral valve is normal in structure. There is no evidence of mitral valve prolapse. There is no mitral valve stenosis. There is no mitral valve regurgitation noted. TRICUSPID VALVE The tricuspid valve is normal in structure. There is trace to mild tricuspid regurgitation. Right ventricular systolic pressure is estimated at less than 30 mmHg. There is no pulmonary hypertension. PULMONIC VALVE The pulmonic valve is not well visualized. There is mild pulmonic valvular regurgitation. GREAT VESSELS The aortic root is normal in size. PERICARDIAL EFFUSION There is no significant pericardial effusion. <Conclusion> Left ventricle systolic function is normal. The Ejection Fraction is 50-55%. Diastolic dysfunction. No aortic regurgitation is present. There is no mitral valve regurgitation noted. There is trace to mild tricuspid regurgitation. There is no pulmonary hypertension. There is mild pulmonic valvular regurgitation.
--- NOTE | 2018-10-23 07:46 | CP.PCM.PN ---
Subjective - Date & Time of Evaluation Date of Evaluation: 10/23/18 Time of Evaluation: 09:30 - Subjective Subjective: PGY-[address] Mark Fonseca Patient is seen and examined at bedside. Patient daughter is by bedside. Patient states feeling well. Continues to experience dizziness, mostly when she gets up from lying or sitting position, but resolves once patient is not moving. Continues having weakness on left side upper and lower extremity but it is known that this is her baseline. Patient denies any other complaints at this time. Ozzy keita admits to not having move her bowels yet since a few days ago. Denies fever, chills, headaches, changes in vision or auditory changes, denies chest pain, sob, n/v/d or urinary symptoms. Objective - Vital Signs/Intake and Output Vital Signs (last 24 hours): Temp Pulse Resp BP Pulse Ox 98 F 86 14 152/69 H 100 10/23/18 04:00 10/23/18 04:00 10/23/18 04:00 10/23/18 04:00 10/23/18 04:00 Intake and Output: 10/23/18 10/23/18 06:59 18:59 Intake Total 150 Balance 150 - Medications Medications: Current Medications Albuterol/Ipratropium (Duoneb 3 Mg/0.5 Mg (3 Ml) Ud) 3 ml INH RQ6 PRN PRN Reason: Shortness of Breath Amlodipine Besylate (Norvasc) 10 mg PO DAILY [facility] Last Admin: 10/22/18 09:31 Dose: 10 mg Aspirin (Aspirin Chewable) 81 mg PO DAILY [facility] Last Admin: 10/22/18 09:30 Dose: 81 mg Dextrose (Dextrose 50% Inj) 0 ml IV STAT PRN; Protocol PRN Reason: Hypoglycemia Protocol Dextrose (Glutose 15) 0 gm PO ONCE PRN; Protocol PRN Reason: Hypoglycemia Protocol Fluticasone/Vilanterol (Breo Ellipta 100-25 Mcg Inh) 1 puff INH RQD [facility] Glucagon (Glucagen Diagnostic Kit) 0 mg IM STAT PRN; Protocol PRN Reason: Hypoglycemia Protocol Heparin Sodium (Porcine) (Heparin) 5,000 units SC Q8 [facility] Last Admin: 10/23/18 05:18 Dose: 5,000 units Hydrochlorothiazide (Microzide) 12.5 mg PO DAILY [facility] Last Admin: 10/22/18 09:31 Dose: 12.5 mg Dextrose (Dextrose 5% In Water 1000 Ml) 1,000 mls @ 0 mls/hr IV .Q0M PRN; Protocol PRN Reason: Hypoglycemia Protocol Insulin Human Regular (Novolin R) 0 unit SC ACHS [facility]; Protocol Last Admin: 10/22/18 22:00 Dose: Not Given Lisinopril (Zestril) 5 mg PO DAILY [facility] Last Admin: 10/22/18 09:31 Dose: 5 mg Rosuvastatin Calcium (Crestor) 10 mg PO HS [facility] Last Admin: 10/22/18 21:37 Dose: 10 mg - Labs Labs: 10/22/18 06:10 10/22/18 06:10 PT 12.5 SECONDS (9.7-12.2) H 10/21/18 20:14 INR 1.1 10/21/18 20:14 APTT 35 SECONDS (21-34) H 10/21/18 20:14 - Constitutional Appears: Non-toxic, No Acute Distress - Head Exam Head Exam: ATRAUMATIC, NORMAL INSPECTION, NORMOCEPHALIC - Eye Exam Eye Exam: EOMI, Normal appearance, PERRL Pupil Exam: NORMAL ACCOMODATION, PERRL - ENT Exam ENT Exam: Mucous Membranes Moist, Normal Exam - Neck Exam Neck Exam: Full ROM, Normal Inspection. absent: Lymphadenopathy, Tenderness, Thyromegaly - Respiratory Exam Respiratory Exam: Clear to Ausculation Bilateral, NORMAL BREATHING PATTERN. absent: Accessory Muscle Use, Rales, Rhonchi, Wheezes, Respiratory Distress - Cardiovascular Exam Cardiovascular Exam: REGULAR RHYTHM, +S1, +S2 - GI/Abdominal Exam GI & Abdominal Exam: Soft, Normal Bowel Sounds. absent: Distended, Guarding, Tenderness - Extremities Exam Extremities Exam: Full ROM, Normal Inspection, Tenderness (when palpating right and left foot and distal Leg b/l ). 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 absent: Normal Gait Neuro motor strength exam: Left Upper Extremity: 5, Right Upper Extremity: 2/1, Left Lower Extremity: 5, Right Lower Extremity: 2/1 Additional comments: slurred speech - Psychiatric Exam Psychiatric exam: Normal Affect, Normal Mood - Skin Skin Exam: Dry, Intact, Normal Color, Warm Assessment and Plan - Assessment and Plan (Free Text) Assessment: 73 year old female with history of NIDDM, CVA x2, HTN, HLD, COPD who presents for 2 week history of dizziness and falls. CT and MRI negative for acute finding s. pending urine cultures. PT/OT to evaluate patient, will follow recs for patient. Plan: Dizziness EKG SR at 65 CXR: negative CT head: There is generalized parenchymal atrophy noted as demonstrated by symmetrical dilatation of ventricles and sulci. 2. Chronic periventricular and subcortical microvascular disease is seen. 3. No acute intracranial pathology. Neurology Dr. Lyn consulted - 73 yr old woman with extensive pmh and risk factors for stroke. She currently has a nonfocal exam, but has severe dizziness. I do not believe this is cerebellar, but we will obtain MRI Brain without karena and echo. There is no old stroke visualized on the ct scan -ASA, crestor, heparin. PT/OT/ST MRI 10/22/18- No evidence of acute intracraial hemorrhage or acute infarct, mild atrophy, focal nospecific foci of hyperintense T2 and FLAIR signal in the white matter likely represent chronic microvascular ischemic disease. Focal encephalomalacia and gliosis at the right cerebellum suggestive of small old infarct U/a - LES 2+, WBC 6, RBC 6 Urine Cx - preliminary shows staph aureus repeat urine culture, straight cath - f/u results Blood Cx - no growth after 24 hours - continue to follow up f/u ECHO - EF -50-55%, Left ventricle systolic function normal f/u carotid dopplers - pending official report Orthostatic vitals - 155/72 lying, 140/73 sitting, 129/76 standing Rapid flu test - negative MRSA screen - not detected Thyroid panel - wnl Falls CT head 1. There is generalized parenchymal atrophy noted as demonstrated by symmetrical dilatation of ventricles and sulci. 2. Chronic periventricular and subcortical microvascular disease is seen. 3. No acute intracranial pathology. PT/OT eval - continue patient on PT therapy for two more session - eval for AIDA vs home with help Fall risk precautions Orthostatic vitals - 155/72 lying, 140/73 sitting, 129/76 standing Right Elbow and shoulder Xray - f/u Bilateral Hip Xray -f/u Right Knee Xray -f/u Hx of prior CVA with residual right sided weakness On ASA, Crestor PT/OT eval: continue patient on PT therapy for two more session - eval for AIDA vs home with help Fall risk precautions Hx of possible heart failure BNP - 487 ECHO - EF -50-55%, Left ventricle systolic function normal, left ventricular dystolic dysfunction Hx of Type 2 DM ISS At home, on Saxagliptin/Metformin combination, held here Hypoglycemia treatment protocol Hx of HTN Lisinopril 5mg PO daily Norvasc 10mg PO daily HCTZ 12.5mg PO daily Hx of HLD Crestor 10mg PO HS - renal dose adjusted Hx of COPD Duonebs RQ6 PRN Breo Ellipta 1 puff INH RQD [facility] Continue to monitor O2 status PPX: Heparin 5000 unit SC Q8 Protonix 40mg IVP PT/OT/speech Diet if pass swallow eval DISPO: Patient to get two more session this weekend. will be following up PT recs over the weekend. If no changes, patient most likely to be discharged on Thursday10/25/2018. Plan discussed with Dr Mark Mcallister, PGY-1
[2018-10-23] MEDS: (Novolin R) Insulin Human Regular 100 units/ml vial SC SCH ×4 (10:17→21:40)
[2018-10-23] MEDS: Fluticasone-Vilanterol 100/25mcg Diskus INH SCH (13:54)
--- NOTE | 2018-10-23 14:36 | RAD ---
PROCEDURE: Radiographs of the pelvis and bilateral hips HISTORY: previous falls 2 weeks ago COMPARISON: None. FINDINGS: BONES: The pelvic ring is intact. There is diffuse bone demineralization. There is an age-indeterminate displaced fracture in the left lesser trochanter. JOINTS: There is moderate degenerative osteoarthrosis in the hip joints with reduced joint spaces and marginal spurring. There is moderate degenerative osteoarthrosis in the sacroiliac joints. There is mild osteitis pubis. SOFT TISSUES: Normal. OTHER FINDINGS: None. IMPRESSION: Age indeterminate but likely acute fracture in the left lesser trochanter.
--- NOTE | 2018-10-23 14:39 | RAD ---
Date of service: 10/23/2018 PROCEDURE: Radiographs of the right elbow. HISTORY: previous falls 2 weeks ago COMPARISON: No prior. FINDINGS: BONES: Bone alignment is normal. There is mild periarticular bone demineralization. There is no acute displaced fracture or bone destruction. JOINTS: Normal. No osteoarthritis. SOFT TISSUES: Normal. JOINT EFFUSION: None. OTHER FINDINGS: None. IMPRESSION: No acute fracture or dislocation.
--- NOTE | 2018-10-23 14:42 | RAD ---
Date of service: 10/23/2018 PROCEDURE: Right Knee Radiographs. HISTORY: previous fall 2 weeks ago COMPARISON: None. FINDINGS: BONES: There is no acute displaced fracture or bone destruction. Bone alignment is normal. There is diffuse bone demineralization. JOINTS: There is severe tricompartmental degenerative osteoarthrosis with reduced joint spaces, marginal osteophytes and tibial spiking, worse in the lateral compartment. JOINT EFFUSION: There is a large suprapatellar joint effusion. OTHER FINDINGS: None. IMPRESSION: No acute displaced fracture or dislocation. Severe tricompartmental degenerative osteoarthrosis, worse in the lateral compartment. Large suprapatellar joint effusion.
--- NOTE | 2018-10-23 14:46 | RAD ---
Date of service: 10/23/2018 PROCEDURE: Radiographs of the Right Shoulder HISTORY: previous fall 2 weeks ago COMPARISON: No prior. FINDINGS: BONES: There is diffuse bone demineralization. No acute displaced fracture or dislocation. JOINTS: Glenohumeral and acromioclavicular joints preserved. There is mild degenerative osteoarthrosis in the acromioclavicular and glenohumeral joints. SOFT TISSUES: Normal. OTHER FINDINGS: None. IMPRESSION: No acute displaced fracture or dislocation.
[2018-10-24 00:22] VITALS: RESP 20
[2018-10-24] MEDS: (Novolin R) Insulin Human Regular 100 units/ml vial SC SCH ×4 (07:43→21:41)
[2018-10-24] MEDS: Fluticasone-Vilanterol 100/25mcg Diskus INH SCH (08:03)
--- NOTE | 2018-10-24 13:42 | CP.PCM.PN ---
Subjective - Date & Time of Evaluation Date of Evaluation: 10/24/18 Time of Evaluation: 08:00 - Subjective Subjective: PGY-[address] Mark Fonseca Patient is seen and examined at bedside. Patient is feeling well this morning, states dizziness has improved. Patient has no other complaints at this time. Patient is eating well. PAtient is mostly in bed, and has not had a bowel movements since thursday. Patient denies fevers, chills, chest pain, sob, worsening weakness, n/v/d/c or urinary complaints. Objective - Vital Signs/Intake and Output Vital Signs (last 24 hours): Temp Pulse Resp BP Pulse Ox 97.9 F 75 20 144/80 100 10/24/18 07:44 10/24/18 09:48 10/24/18 07:44 10/24/18 09:48 10/24/18 07:44 Intake and Output: 10/24/18 10/24/18 06:59 18:59 Intake Total 240 Output Total 400 Balance -160 - Medications Medications: Current Medications Albuterol/Ipratropium (Duoneb 3 Mg/0.5 Mg (3 Ml) Ud) 3 ml INH RQ6 PRN PRN Reason: Shortness of Breath Last Admin: 10/24/18 07:25 Dose: 3 ml Amlodipine Besylate (Norvasc) 10 mg PO DAILY [facility] Last Admin: 10/24/18 09:50 Dose: 10 mg Aspirin (Aspirin Chewable) 81 mg PO DAILY [facility] Last Admin: 10/24/18 09:50 Dose: 81 mg Dextrose (Dextrose 50% Inj) 0 ml IV STAT PRN; Protocol PRN Reason: Hypoglycemia Protocol Dextrose (Glutose 15) 0 gm PO ONCE PRN; Protocol PRN Reason: Hypoglycemia Protocol Docusate Sodium (Colace) 100 mg PO TID [facility] Last Admin: 10/24/18 13:31 Dose: 100 mg Fluticasone/Vilanterol (Breo Ellipta 100-25 Mcg Inh) 1 puff INH RQD [facility] Last Admin: 10/24/18 08:03 Dose: Not Given Glucagon (Glucagen Diagnostic Kit) 0 mg IM STAT PRN; Protocol PRN Reason: Hypoglycemia Protocol Heparin Sodium (Porcine) (Heparin) 5,000 units SC Q8 [facility] Last Admin: 10/24/18 13:31 Dose: 5,000 units Hydrochlorothiazide (Microzide) 12.5 mg PO DAILY [facility] Last Admin: 10/24/18 09:50 Dose: 12.5 mg Dextrose (Dextrose 5% In Water 1000 Ml) 1,000 mls @ 0 mls/hr IV .Q0M PRN; Protocol PRN Reason: Hypoglycemia Protocol Insulin Human Regular (Novolin R) 0 unit SC ACHS [facility]; Protocol Last Admin: 10/24/18 12:30 Dose: Not Given Lisinopril (Zestril) 5 mg PO DAILY [facility] Last Admin: 10/24/18 09:50 Dose: 5 mg Rosuvastatin Calcium (Crestor) 10 mg PO HS [facility] Last Admin: 10/23/18 21:49 Dose: 10 mg - Labs Labs: 10/22/18 06:10 10/22/18 06:10 PT 12.5 SECONDS (9.7-12.2) H 10/21/18 20:14 INR 1.1 10/21/18 20:14 APTT 35 SECONDS (21-34) H 10/21/18 20:14 - Constitutional Appears: Well, Non-toxic, No Acute Distress - Head Exam Head Exam: ATRAUMATIC, NORMAL INSPECTION, NORMOCEPHALIC - Eye Exam Eye Exam: EOMI, Normal appearance - ENT Exam ENT Exam: Mucous Membranes Moist, Normal Exam - Neck Exam Neck Exam: Normal Inspection - Respiratory Exam Respiratory Exam: Clear to Ausculation Bilateral, NORMAL BREATHING PATTERN. absent: Rales, Rhonchi, Wheezes - Cardiovascular Exam Cardiovascular Exam: REGULAR RHYTHM, +S1, +S2 - GI/Abdominal Exam GI & Abdominal Exam: Soft, Normal Bowel Sounds - Extremities Exam Extremities Exam: Normal Inspection, Tenderness (right foot, leg on palpation). absent: Joint Swelling, Pedal Edema - Back Exam Back Exam: NORMAL INSPECTION - Neurological Exam Neurological Exam: Alert, Awake, Oriented x3. absent: Normal Gait Additional comments: slurred speech - Psychiatric Exam Psychiatric exam: Normal Affect, Normal Mood - Skin Skin Exam: Dry, Intact, Normal Color, Warm Assessment and Plan - Assessment and Plan (Free Text) Assessment: 73 year old female with history of NIDDM, CVA x2, HTN, HLD, COPD who presents for 2 week history of dizziness and falls. CT and MRI negative for acute findings. PT/OT to evaluate patient, possible d/c tomorrow if stable. Plan: Dizziness r/o new CVA vs infection EKG SR at 65 CXR: negative CT head: There is generalized parenchymal atrophy noted as demonstrated by symmetrical dilatation of ventricles and sulci. 2. Chronic periventricular and subcortical microvascular disease is seen. 3. No acute intracranial pathology. Neurology Dr. Lyn consulted - 73 yr old woman with extensive pmh and risk factors for stroke. She currently has a nonfocal exam, but has severe dizziness. I do not believe this is cerebellar, but we will obtain MRI Brain without karena and echo. There is no old stroke visualized on the ct scan -ASA, crestor, heparin. PT/OT/ST MRI 10/22/18- No evidence of acute intracraial hemorrhage or acute infarct, mild atrophy, focal nospecific foci of hyperintense T2 and FLAIR signal in the white matter likely represent chronic microvascular ischemic disease. Focal encephalomalacia and gliosis at the right cerebellum suggestive of small old infarct U/a - LES 2+, WBC 6, RBC 6 Urine Cx -final report shows staph aureus - probably due to contamination repeat urine culture, straight cath - f/u results Blood Cx - no growth after 24 hours - continue to follow up f/u ECHO - EF -50-55%, Left ventricle systolic function normal f/u carotid dopplers - normal findings Orthostatic vitals - 155/72 lying, 140/73 sitting, 129/76 standing Rapid flu test - negative MRSA screen - not detected Thyroid panel - wnl -Patient is most likely at baseline - will follow with PT for their recs for patient. Falls CT head 1. There is generalized parenchymal atrophy noted as demonstrated by symmetrical dilatation of ventricles and sulci. 2. Chronic periventricular and subcortical microvascular disease is seen. 3. No acute intracranial pathology. PT/OT eval - continue patient on PT therapy for two more session - eval for AIDA vs home with help Fall risk precautions Orthostatic vitals - 155/72 lying, 140/73 sitting, 129/76 standing Right Elbow - no fracture or dislocation Bilateral Hip Xray -age indeterminate displaced fracture in the left lesser lower trochanter Right Knee Xray - no acute displaced fracture or dislocation , large degenerative OA, large joint effusion. Shoulder Xray - no acute displaced fracture or dislocation Constipation - colace 100mg PO TID - dulcolax x 1 dose Hx of prior CVA with residual right sided weakness On ASA, Crestor PT/OT eval: continue patient on PT therapy for two more session - eval for AIDA vs home with help Fall risk precautions Hx of possible heart failure BNP - 487 ECHO - EF -50-55%, Left ventricle systolic function normal, left ventricular dystolic dysfunction Hx of Type 2 DM ISS At home, on Saxagliptin/Metformin combination, held here Hypoglycemia treatment protocol Hx of HTN Lisinopril 5mg PO daily Norvasc 10mg PO daily HCTZ 12.5mg PO daily Hx of HLD Crestor 10mg PO HS - renal dose adjusted Hx of COPD Duonebs RQ6 PRN Breo Ellipta 1 puff INH RQD [facility] Continue to monitor O2 status PPX: Heparin 5000 unit SC Q8 Protonix 40mg IVP PT/OT/speech f/u am labs DISPO: Follow up with Physical Therapy in the morning to obtain their recommendations and to confirm patient is at baseline. If no changes overnight, patient most likely to be discharged on Thursday10/25/2018. Plan discussed with Dr Mark Mcallister, PGY-1
[2018-10-24] MEDS ORDERED: Bisacodyl 5mg EC Tab PO ONE (16:26)
[2018-10-25 07:00] LABS: BASO # 0.1 K/uL (0.0-0.2); BASO % 1.4 % (0.0-2.0); EOS # 0.4 K/uL (0.0-0.7); EOS % 7.5 % (0.0-4.0); LYMPH # 2.1 K/uL (1.0-4.3); MEAN CELL VOLUME 89.4 fL (81.0-99.0); MEAN CORPUSCULAR HEMOGLOBIN 29.3 pg (27.0-31.0); MEAN CORPUSCULAR HGB CONC 32.7 g/dL (33.0-37.0); MEAN PLATELET VOLUME 8.8 fL (7.2-11.7); MONO # 0.5 K/uL (0.0-0.8); NEUT # 2.3 K/uL (1.8-7.0); NEUT % 43.1 % (50.0-75.0); RBC 4.1 Mil/uL (3.80-5.20); RED CELL DISTRIBUTION WIDTH 14.5 % (11.5-14.5); WHITE BLOOD COUNT 5.5 K/uL (4.8-10.8)
[2018-10-25] MEDS: (Novolin R) Insulin Human Regular 100 units/ml vial SC SCH ×2 (07:42→11:54)
[2018-10-25 07:54] LABS: ALB/GLOB RATIO 1.2 (1.0-2.1); ALBUMIN 3.6 g/dL (3.5-5.0); CALCIUM 9.4 mg/dl (8.6-10.4)
[2018-10-25 08:00] VITALS: TEMP 98; O2SAT 97
--- NOTE | 2018-10-25 10:35 | CP.PCM.PN ---
Subjective - Date & Time of Evaluation Date of Evaluation: 10/25/18 Time of Evaluation: 10:15 - Subjective Subjective: Hospitalist Progress Note Patient was seen and examined at 10:15 AM 10/25/18 565 B States still has not had bowel movement today or yesterday Tolerating diet without nausea/vomiting NO abdominal pain/distention NO longer with dizziness NO lightheadedness NO other complaints upon FULL ROS HEENT, Cardio, Resp, GI, Ext, CN II through XII exam are unremarkable except where noted: Left Toe #1 amputation secondary to complications from DM Abdomen is soft, ND, Normal bowel sounds in all 4 quadrants, NT, NO guarding/rebound tenderness Patient is at her baseline of physical ability as per my conversation with Daughter Ryann on Thursday10/23/18: requires assistance getting up into position to use her walker She has a walker at home Patient is stable for discharge The following instructions will need to be provided to patient in [place] upon discharge: 1). Schedule appointment with [facility] located on [address] of [address] in [place], [place] by calling [phone] for an appointment to take place in the next 7 to 10 days. The physicians there will help you to coordinate your health care, provide you with information to set up outpatient Physical Therapy, and future prescriptions that you will need to have filled at your pharmacy. 2). Please have the following medications filled at your pharmacy on your way home from the hospital: Kombiglyze XR 500/5 mg, 1 tablet by mouth 1x/day (8 AM), #30 Protonix 40 mg, 1 tablet by mouth 1x/day (8 AM), #30 Lisinopril 5 mg, 1 tablet by mouth 1x/day (2 PM), #30 Atorvastatin 40 mg, 1 tablet by mouth 1x/day (8 PM), #30 Aspirin 81 mg, 1 tablet by mouth 1x/day (8 AM), #30 HCTZ 12.5 mg, 1 tablet by mouth 1x/day (8 AM), #30 Amlodipine 10 mg, 1 tablet by mouth 1x/day (8 PM), Dispense #30 Breo-Ellipta 100/25 mcg, 1 inhalation by mouth 1x/day (8 AM), Dispense #1 Albuterol 90 mcg/actuation, 2 inhalations by mouth every 6 hours ONLY NEEDED for shortness of breath, Dispense #1 3). Please take care and be well Mark Fonseca D.O. The following is brief summary of patient's care while in the Hospital: Dizziness r/o new CVA vs infection EKG SR at 65 CXR: negative CT head: There is generalized parenchymal atrophy noted as demonstrated by symmetrical dilatation of ventricles and sulci. 2. Chronic periventricular and subcortical microvascular disease is seen. 3. No acute intracranial pathology. Neurology Dr. Lyn consulted - 73 yr old woman with extensive pmh and risk factors for stroke. She currently has a nonfocal exam, but has severe dizziness. I do not be lieve this is cerebellar, but we will obtain MRI Brain without karena and echo. There is no old stroke visualized on the ct scan -ASA, crestor, heparin. PT/OT/ST MRI 10/22/18- No evidence of acute intracraial hemorrhage or acute infarct, mild atrophy, focal nospecific foci of hyperintense T2 and FLAIR signal in the white matter likely represent chronic microvascular ischemic disease. Focal encephalomalacia and gliosis at the right cerebellum suggestive of small old infarct U/a - LES 2+, WBC 6, RBC 6 Urine Cx -final report shows staph aureus - probably due to contamination repeat urine culture, straight cath - f/u results Blood Cx - no growth after 24 hours - continue to follow up f/u ECHO - EF -50-55%, Left ventricle systolic function normal f/u carotid dopplers - normal findings Orthostatic vitals - 155/72 lying, 140/73 sitting, 129/76 standing Rapid flu test - negative MRSA screen - not detected Thyroid panel - wnl -Patient is most likely at baseline - will follow with PT for their recs for patient: AIDA is recommended however NO insurance. Will need outpatient PT. Falls CT head 1. There is generalized parenchymal atrophy noted as demonstrated by symmetrical dilatation of ventricles and sulci. 2. Chronic periventricular and subcortical microvascular disease is seen. 3. No acute intracranial pathology. PT/OT eval - continue patient on PT therapy for two more session - eval for AIDA vs home with help Fall risk precautions Orthostatic vitals - 155/72 lying, 140/73 sitting, 129/76 standing Right Elbow - no fracture or dislocation Bilateral Hip Xray -age indeterminate displaced fracture in the left lesser lower trochanter Right Knee Xray - no acute displaced fracture or dislocation , large deg enerative OA, large joint effusion. Shoulder Xray - no acute displaced fracture or dislocation Constipation - colace 100mg PO TID - dulcolax x 1 dose Hx of prior CVA with residual right sided weakness On ASA, Crestor PT/OT eval: continue patient on PT therapy for two more session - eval for AIDA vs home with help Fall risk precautions Hx of possible heart failure?: diastolic dysfunction noted on Echo BNP - 487 ECHO - EF -50-55%, Left ventricle systolic function normal, left ventricular dystolic dysfunction Hx of Type 2 DM ISS At home, on Saxagliptin/Metformin combination, held here Hypoglycemia treatment protocol Hx of HTN Lisinopril 5mg PO daily Norvasc 10mg PO daily HCTZ 12.5mg PO daily Hx of HLD Crestor 10mg PO HS - renal dose adjusted Hx of COPD Duonebs RQ6 PRN Breo Ellipta 1 puff INH RQD [facility] Continue to monitor O2 status PPX: Heparin 5000 unit SC Q8 Protonix 40mg IVP PT/OT Objective - Vital Signs/Intake and Output Vital Signs (last 24 hours): Temp Pulse Resp BP Pulse Ox 98.0 F 67 20 128/78 97 10/25/18 07:59 10/25/18 07:59 10/25/18 07:59 10/25/18 07:59 10/25/18 07:59 Intake and Output: 10/25/18 10/25/18 06:59 18:59 Intake Total 250 Output Total 200 Balance 50 - Medications Medications: Current Medications Albuterol/Ipratropium (Duoneb 3 Mg/0.5 Mg (3 Ml) Ud) 3 ml INH RQ6 PRN PRN Reason: Shortness of Breath Last Admin: 10/24/18 07:25 Dose: 3 ml Amlodipine Besylate (Norvasc) 10 mg PO DAILY [facility] Last Admin: 10/24/18 09:50 Dose: 10 mg Aspirin (Aspirin Chewable) 81 mg PO DAILY [facility] Last Admin: 10/24/18 09:50 Dose: 81 mg Dextrose (Dextrose 50% Inj) 0 ml IV STAT PRN; Protocol PRN Reason: Hypoglycemia Protocol Dextrose (Glutose 15) 0 gm PO ONCE PRN; Protocol PRN Reason: Hypoglycemia Protocol Docusate Sodium (Colace) 100 mg PO TID [facility] Last Admin: 10/24/18 17:02 Dose: 100 mg Fluticasone/Vilanterol (Breo Ellipta 100-25 Mcg Inh) 1 puff INH RQD [facility] Last Admin: 10/24/18 08:03 Dose: Not Given Glucagon (Glucagen Diagnostic Kit) 0 mg IM STAT PRN; Protocol PRN Reason: Hypoglycemia Protocol Hydrochlorothiazide (Microzide) 12.5 mg PO DAILY [facility] Last Admin: 10/24/18 09:50 Dose: 12.5 mg Insulin Human Regular (Novolin R) 0 unit SC ACHS [facility]; Protocol Last Admin: 10/25/18 07:42 Dose: Not Given Lisinopril (Zestril) 5 mg PO DAILY [facility] Last Admin: 10/24/18 09:50 Dose: 5 mg Rosuvastatin Calcium (Crestor) 10 mg PO HS [facility] Last Admin: 10/24/18 21:07 Dose: 10 mg - Labs Labs: 10/25/18 06:56 10/25/18 06:56 PT 12.5 SECONDS (9.7-12.2) H 10/21/18 20:14 INR 1.1 10/21/18 20:14 APTT 35 SECONDS (21-34) H 10/21/18 20:14
--- NOTE | 2018-10-25 11:22 | CP.PCM.PN ---
Subjective - Date & Time of Evaluation Date of Evaluation: 10/25/18 Time of Evaluation: 08:00 - Subjective Subjective: Neurology Progress Note: Patient was seen and examined at bedside in the AM. Patient denies headache, fevers, chest pain, nausea. Objective - Vital Signs/Intake and Output Vital Signs (last 24 hours): Temp Pulse Resp BP Pulse Ox 98.0 F 67 20 128/78 97 10/25/18 07:59 10/25/18 07:59 10/25/18 07:59 10/25/18 07:59 10/25/18 07:59 Intake and Output: 10/25/18 10/25/18 06:59 18:59 Intake Total 250 Output Total 200 Balance 50 - Medications Medications: Current Medications Albuterol/Ipratropium (Duoneb 3 Mg/0.5 Mg (3 Ml) Ud) 3 ml INH RQ6 PRN PRN Reason: Shortness of Breath Last Admin: 10/24/18 07:25 Dose: 3 ml Amlodipine Besylate (Norvasc) 10 mg PO DAILY [facility] Last Admin: 10/24/18 09:50 Dose: 10 mg Aspirin (Aspirin Chewable) 81 mg PO DAILY [facility] Last Admin: 10/24/18 09:50 Dose: 81 mg Dextrose (Dextrose 50% Inj) 0 ml IV STAT PRN; Protocol PRN Reason: Hypoglycemia Protocol Dextrose (Glutose 15) 0 gm PO ONCE PRN; Protocol PRN Reason: Hypoglycemia Protocol Docusate Sodium (Colace) 100 mg PO TID [facility] Last Admin: 10/24/18 17:02 Dose: 100 mg Fluticasone/Vilanterol (Breo Ellipta 100-25 Mcg Inh) 1 puff INH RQD [facility] Last Admin: 10/24/18 08:03 Dose: Not Given Glucagon (Glucagen Diagnostic Kit) 0 mg IM STAT PRN; Protocol PRN Reason: Hypoglycemia Protocol Hydrochlorothiazide (Microzide) 12.5 mg PO DAILY [facility] Last Admin: 10/24/18 09:50 Dose: 12.5 mg Insulin Human Regular (Novolin R) 0 unit SC ACHS [facility]; Protocol Last Admin: 10/25/18 07:42 Dose: Not Given Lisinopril (Zestril) 5 mg PO DAILY [facility] Last Admin: 10/24/18 09:50 Dose: 5 mg Rosuvastatin Calcium (Crestor) 10 mg PO HS [facility] Last Admin: 10/24/18 21:07 Dose: 10 mg - Labs Labs: 10/25/18 06:56 10/25/18 06:56 PT 12.5 SECONDS (9.7-12.2) H 10/21/18 20:14 INR 1.1 10/21/18 20:14 APTT 35 SECONDS (21-34) H 10/21/18 20:14 - Constitutional Appears: No Acute Distress - Head Exam Head Exam: ATRAUMATIC, NORMAL INSPECTION - Eye Exam Eye Exam: EOMI, Normal appearance - ENT Exam ENT Exam: Mucous Membranes Moist - Respiratory Exam Respiratory Exam: Clear to Ausculation Bilateral, NORMAL BREATHING PATTERN - Cardiovascular Exam Cardiovascular Exam: REGULAR RHYTHM, +S1, +S2 - GI/Abdominal Exam GI & Abdominal Exam: Soft, Normal Bowel Sounds. absent: Tenderness - Neurological Exam Neurological Exam: Alert, Awake, Oriented x3 Neuro motor strength exam: Left Upper Extremity: 5, Right Upper Extremity: 4, Left Lower Extremity: 5, Right Lower Extremity: 4 Additional comments: garbled speech - Psychiatric Exam Psychiatric exam: Normal Affect - Skin Skin Exam: Normal Color Assessment and Plan - Assessment and Plan (Free Text) Assessment: 73 year old female w/ PMHx of CVA x2, DM, HLD, HTN, COPD admitted for evaluation of 2 weeks of progressive vertigo/unsteadiness associated with multiple falls Plan: - Head CT shows no acute pathology. Mild chronic microangiopathic changes. Mild age related global parenchymal vomule loss. - MRI brain: chronic microvascular ischemic disease; focal encephalomalacia and gliosis at the right cerebellum suggestive of small old infarct. - Echo: EF 50-55%; diastolic dysfunction - Carotid Doppler: Normal - ASA, crestor, heparin - Disposition per primary team: discharge home Case discussed with Dr. Riki Sung PGY-2
--- NOTE | 2018-10-25 11:59 | CP.PCM.DIS ---
Provider - Provider Date of Admission: 10/21/18 21:32 Attending physician: Aron Riley MD Consults: 10/22/18 02:30 Physician Consult Routine Comment: Consulting Provider: Benito Lyn Consulting Physician: Benito Lyn Reason for Consult: dizziness, weakness 10/22/18 07:47 Wound Care [Nursing Referral for Wound Care] Routine Comment: mult. ecchymoses from falls Physician Instructions: Reason For Exam: wounds on right elbow,inner gluteal fold,reddened Time Spent in preparation of Discharge (in minutes): 180 Diagnosis - Discharge Diagnosis (1) Dizziness Status: Acute (2) Near syncope Status: Acute Hospital Course - Lab Results Lab Results: Micro Results 10/23/18 Unknown Nose MRSA Culture - Final MRSA NOT DETECTED 10/23/18 22:52 Urine,Clean Catch Urine Culture - Final No Growth (<1,000 CFU/ML) 10/22/18 08:22 Blood Blood Culture - Preliminary NO GROWTH AFTER 3 DAYS 10/22/18 08:22 Blood Blood Culture - Preliminary NO GROWTH AFTER 3 DAYS 10/22/18 14:17 Urine Urine Culture - Final Staphylococcus Aureus 10/22/18 06:10 Naris MRSA Culture (Admit) - Final MRSA NOT DETECTED Most Recent Lab Values WBC 5.5 K/uL (4.8-10.8) 10/25/18 06:56 RBC 4.10 Mil/uL (3.80-5.20) 10/25/18 06:56 Hgb 12.0 g/dL (11.0-16.0) 10/25/18 06:56 Hct 36.7 % (34.0-47.0) 10/25/18 06:56 MCV 89.4 fL (81.0-99.0) 10/25/18 06:56 MCH 29.3 pg (27.0-31.0) 10/25/18 06:56 MCHC 32.7 g/dL (33.0-37.0) L 10/25/18 06:56 RDW 14.5 % (11.5-14.5) 10/25/18 06:56 Plt Count 183 K/uL (130-400) 10/25/18 06:56 MPV 8.8 fL (7.2-11.7) 10/25/18 06:56 Neut % (Auto) 43.1 % (50.0-75.0) L 10/25/18 06:56 Lymph % (Auto) 38.0 % (20.0-40.0) 10/25/18 06:56 Kay % (Auto) 10.0 % (0.0-10.0) 10/25/18 06:56 Eos % (Auto) 7.5 % (0.0-4.0) H 10/25/18 06:56 Baso % (Auto) 1.4 % (0.0-2.0) 10/25/18 06:56 Neut # (Auto) 2.3 K/uL (1.8-7.0) 10/25/18 06:56 Lymph # (Auto) 2.1 K/uL (1.0-4.3) 10/25/18 06:56 Kay # (Auto) 0.5 K/uL (0.0-0.8) 10/25/18 06:56 Eos # (Auto) 0.4 K/uL (0.0-0.7) 10/25/18 06:56 Baso # (Auto) 0.1 K/uL (0.0-0.2) 10/25/18 06:56 PT 12.5 SECONDS (9.7-12.2) H 10/21/18 20:14 INR 1.1 10/21/18 20:14 APTT 35 SECONDS (21-34) H 10/21/18 20:14 Sodium 137 mmol/L (132-148) 10/25/18 06:56 Potassium 4.4 mmol/L (3.6-5.2) 10/25/18 06:56 Chloride 105 mmol/L (98-107) 10/25/18 06:56 Carbon Dioxide 25 mmol/L (22-30) 10/25/18 06:56 Anion Gap 12 (10-20) 10/25/18 06:56 BUN 35 mg/dL (7-17) H 10/25/18 06:56 Creatinine 1.2 mg/dL (0.7-1.2) 10/25/18 06:56 Est GFR ( Amer) 53 10/25/18 06:56 Est GFR (Non-Af Amer) 44 10/25/18 06:56 POC Glucose (mg/dL) 163 mg/dL (65-110) H 10/25/18 11:28 Random Glucose 93 mg/dL (65-105) D 10/25/18 06:56 Hemoglobin A1c 5.7 % (4.2-6.5) 10/22/18 10:04 Calcium 9.4 mg/dl (8.6-10.4) 10/25/18 06:56 Phosphorus 3.2 mg/dL (2.5-4.5) 10/25/18 06:56 Magnesium 1.7 mg/dL (1.6-2.3) 10/25/18 06:56 Total Bilirubin 0.4 mg/dL (0.2-1.3) 10/25/18 06:56 AST 27 U/L (14-36) 10/25/18 06:56 ALT 24 U/L (9-52) 10/25/18 06:56 Alkaline Phosphatase 70 U/L (38-126) 10/25/18 06:56 Troponin I 0.0180 ng/mL (0.00-0.120) 10/21/18 20:14 NT-Pro-B Natriuret Pep 487 pg/mL (0-900) 10/22/18 06:10 Total Protein 6.5 g/dL (6.3-8.3) 10/25/18 06:56 Albumin 3.6 g/dL (3.5-5.0) 10/25/18 06:56 Globulin 2.9 gm/dL (2.2-3.9) 10/25/18 06:56 Albumin/Globulin Ratio 1.2 (1.0-2.1) 10/25/18 06:56 Triglycerides 75 mg/dL (0-149) 10/22/18 06:10 Cholesterol 113 mg/dL (0-199) 10/22/18 06:10 LDL Cholesterol Direct 51 mg/dL (0-129) 10/22/18 06:10 HDL Cholesterol 49 mg/dL (30-70) 10/22/18 06:10 Vitamin B12 882 pg/mL (239-931) 10/22/18 14:23 Folate > 20.0 ng/mL 10/22/18 14:23 TSH 3rd Generation 0.99 mIU/L (0.46-4.68) 10/22/18 14:23 Urine Color Yellow (YELLOW) 10/22/18 04:02 Urine Clarity Hazy (Clear) 10/22/18 04:02 Urine pH 5.0 (5.0-8.0) 10/22/18 04:02 Ur Specific [place] 1.014 (1.003-1.030) 10/22/18 04:02 Urine Protein Negative mg/dL (NEGATIVE) 10/22/18 04:02 Urine Glucose (UA) Normal mg/dL (Normal) 10/22/18 04:02 Urine Ketones Negative mg/dL (NEGATIVE) 10/22/18 04:02 Urine Blood Negative (NEGATIVE) 10/22/18 04:02 Urine Nitrate Negative (NEGATIVE) 10/22/18 04:02 Urine Bilirubin Negative (NEGATIVE) 10/22/18 04:02 Urine Urobilinogen Normal mg/dL (0.2-1.0) 10/22/18 04:02 Ur Leukocyte Esterase 2+ Bear/uL (Negative) H 10/22/18 04:02 Urine WBC (Auto) 6 /hpf (0-5) H 10/22/18 04:02 Urine RBC (Auto) 6 /hpf (0-3) H 10/22/18 04:02 Ur Squamous Epith Cells 9 /hpf (0-5) H 10/22/18 04:02 Urine Bacteria Occ (<OCC) H 10/22/18 04:02 Hyaline Casts 3-5 /lpf (0-2) H 10/22/18 04:02 Influenza Typ A,B (EIA) Negative for flu a/b (NEGATIVE) 10/22/18 18:50 - Hospital Course Hospital Course: On admission: Patient is a 73 year old female with history of NIDDM, 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 Patient is visiting from [place]. She states she uses a walker to ambulate and has had a few falls over the past 2 weeks. Daughter at bedside states she slid off the bed and landed on her buttock region prior to arrival. Daughter denies loss of consciousness. Prior to the past 2 weeks, patient has been able to feed herself with her left hand, because she has residual right sided weakness. She states that her right sided weakness has become slightly worse over the past 2 weeks. Daughter states she has noticed that patient has not been eating and has been skipping food. She denies coughing or choking on her food. Patient simply states she has a poor appetite and does not want to eat. She denies fevers, chills, headache, chest pain, shortness of breath, abdominal pain, nausea, vomiting, diarrhea, constipation, leg pain or swelling. Daughter denies history of CAD with stent but unsure of heart failure. On hospitalization course: Patient was admitted for evaluation of her 2 week history of dizziness and recent falls, and to rule out new CVA. EKG SR at 65. CT head shows generalized parenchymal atrophy noted as demonstrated by symmetrical dilatation of ventricles and sulci. 2. Chronic periventricular and subcortical microvascular disease is seen. 3. No acute intracranial pathology. MRI of head shows no evidence of acute intracraial hemorrhage or acute infarct, mild atrophy, focal nospecific foci of hyperintense T2 and FLAIR signal in the white matter likely represent chronic microvascular ischemic disease. Focal encephalomalacia and gliosis at the right cerebellum suggestive of small old infarct. Neurology Dr Lyn consulted, possibly not of cerebellar origin, no old stroke visualized on CT scan. Blood cultures and urine cultures negative. ECHO done on this admission - EF -50-55%, Left ventricle systolic function normal, carotid dopplers - normal findings. Due to history of falls, we obtained several xrays of right elbow, shoulder, knee, and bilateral hip, which does not show any fracture of dislocation. Physical therapy was consulted which recommended A[facility] for patient. As per conversation with Jackeline Garzon patient is currently at baseline of physical activity and requires help to get up from sitting positing and going up the stairs, patient uses walker at home. In addition, due to patient not having insurance and is not eligible for A[facility] and patient return's to her home country of [place], it is not possible for patient to be placed to [facility]. as per PT, pt needs Outpt PT, rw to assist safe ambulation. For Hx of DM, patient was given ISS and kept monitor glucose. for hx of HTN, patient received Lisinopril 5mg PO daily, Norvasc 10mg PO daily, HCTZ 12.5mg PO daily/ for history of HLD, pt received Crestor 10mg PO HS. For hx of COPD, patient received Duonebs RQ6 PRN and Breo Ellipta 1 puff INH RQD [facility]. For prophylaxis patient received Heparin 5000 unit SC Q8 and Protonix 40mg IVP. On discharge: Patient is stable for discharge. The following instructions will need to be provided to patient upon discharge: 1). Schedule appointment with [facility] located on Floor [address] of [address] in [place], [place] by calling [phone] for an appointment to take place in the next 7 to 10 days. The physicians there will help you to coordinate your health care, provide you with information to set up outpatient Physical Therapy, and future prescriptions that you will need to have filled at your pharmacy. 2). Please have the following medications filled at your pharmacy on your way home from the hospital: Kombiglyze XR 500/5 mg, 1 tablet by mouth 1x/day (8 AM), #30 Protonix 40 mg, 1 tablet by mouth 1x/day (8 AM), #30 Lisinopril 5 mg, 1 tablet by mouth 1x/day (2 PM), #30 Atorvastatin 40 mg, 1 tablet by mouth 1x/day (8 PM), #30 Aspirin 81 mg, 1 tablet by mouth 1x/day (8 AM), #30 HCTZ 12.5 mg, 1 tablet by mouth 1x/day (8 AM), #30 Amlodipine 10 mg, 1 tablet by mouth 1x/day (8 PM), Dispense #30 Breo-Ellipta 100/25 mcg, 1 inhalation by mouth 1x/day (8 AM), Dispense #1 Albuterol 90 mcg/actuation, 2 inhalations by mouth every 6 hours ONLY NEEDED for shortness of breath, Dispense #1 3). Patient can have 8 oz of prune juice every morning with breakfast for const ipation. 4). Please take care and be well This is a short summary of patient hospitalization course. For more information, please refer to patient's EMR. - Date & Time of H&P Date of H&P: 10/22/18 Time of H&P: 02:00 Discharge Exam - Head Exam Head Exam: ATRAUMATIC, NORMAL INSPECTION - Eye Exam Eye Exam: EOMI, Normal appearance - ENT Exam ENT Exam: Mucous Membranes Moist, Normal Exam - Respiratory Exam Respiratory Exam: Clear to PA & Lateral, NORMAL BREATHING PATTERN, UNREMARKABLE - Cardiovascular Exam Cardiovascular Exam: REGULAR RHYTHM, +S1, +S2 - GI/Abdominal Exam GI & Abdominal Exam: Normal Bowel Sounds, Unremarkable - Extremities Exam Extremities exam: normal inspection - Back Exam Back exam: NORMAL INSPECTION - Neurological Exam Neurological exam: Alert, Oriented x3 Additional comments: slurred speech, right upper and lower extremity weakness vs left - Psychiatric Exam Psychiatric exam: Normal Affect, Normal Mood - Skin Skin Exam: Dry, Intact, Normal Color, Warm Discharge Plan - Discharge Medications Prescriptions: Albuterol HFA [Ventolin HFA 90 mcg/actuation (8 g)] 1 puff IH Q6H PRN #1 inhaler PRN Reason: Shortness Of Breath amLODIPine [Norvasc] 10 mg PO DAILY 30 Days #30 tab Aspirin [Aspirin Chewable] 81 mg PO DAILY #30 chew Atorvastatin [Lipitor] 40 mg PO DAILY #30 tab Fluticasone/Vilanterol 100/25 [Breo Ellipta 100-25 MCG INH] 1 puff INH RQD #1 p uff hydroCHLOROthiazide [Microzide] 12.5 mg PO DAILY #30 cap Lisinopril [Zestril] 5 mg PO DAILY #30 tab Pantoprazole [Protonix EC Tab] 40 mg PO DAILY #30 ect Saxagliptin HCl/Metformin HCl [Kombiglyze Xr 5-500 mg Tablet] 1 ter PO DAILY #30 tbmp.24hr - Follow Up Plan Condition: FAIR Disposition: HOME/ ROUTINE Instructions: Chronic Obstructive Pulmonary Disease (COPD), Including Emphysema, Saxagliptin and Metformin, Dizziness, Nonvertigo, (DC), Near Fainting (DC) Additional Instructions: 1). Schedule appointment with [facility] located on [address] of [address] in [place], [place] by calling [phone] for an appointment to take place in the next 7 to 10 days. The physicians there will help you to coordinate your health care, provide you with information to set up outpatient Physical Therapy, and future prescriptions that you will need to have filled at your pharmacy. 2). Please have the following medications filled at your pharmacy on your way home from the hospital: Kombiglyze XR 500/5 mg, 1 tablet by mouth 1x/day (8 AM), #30 Protonix 40 mg, 1 tablet by mouth 1x/day (8 AM), #30 Lisinopril 5 mg, 1 tablet by mouth 1x/day (2 PM), #30 Atorvastatin 40 mg, 1 tablet by mouth 1x/day (8 PM), #30 Aspirin 81 mg, 1 tablet by mouth 1x/day (8 AM), #30 HCTZ 12.5 mg, 1 tablet by mouth 1x/day (8 AM), #30 Amlodipine 10 mg, 1 tablet by mouth 1x/day (8 PM), Dispense #30 Breo-Ellipta 100/25 mcg, 1 inhalation by mouth 1x/day (8 AM), Dispense #1 Albuterol 90 mcg/actuation, 2 inhalations by mouth every 6 hours ONLY NEEDED for shortness of breath, Dispense #1 3) Please take 8oz of prune juice every morning with breakfast to help you move your bowels. 4). Please take care and be well Referrals: [facility] [Outside]
--- NOTE | 2018-10-25 13:04 | VASCLAB ---
Date of service: 10/22/2018 PROCEDURE: Carotid Duplex Exam. HISTORY: dizziness, weakness COMPARISON: None available. TECHNIQUE: Grayscale and duplex Doppler evaluation of the cervical carotid and vertebral arteries were performed. The common carotid, carotid bifurcations and cervical Internal Carotid Artery (ICA) and proximal External Carotid Artery (ECA) were evaluated. The vertebral arteries were evaluated for gross patency and flow direction. Report prepared by Shilo Flowers, BS, RVT FINDINGS: RIGHT CAROTID ARTERIES: 1. Common Carotid Artery: No significant focal plaque formation of the right common carotid artery. Maximum Peak Systolic velocity: 52 cm/sec: End-diastolic velocity 13 cm/sec. 2. Carotid Bifurcation: plaque formation. Maximum Peak Systolic velocity: 71 cm/sec: End-diastolic velocity 15 cm/sec. 3. Internal Carotid Artery: Plaque description: 3.1. Proximal Segment: Peak systolic velocity 52 cm/sec: End-diastolic velocity 13 cm/sec - % stenosis 0-15% 3.2. Middle Segment: Peak systolic velocity 95 cm/sec: End-diastolic velocity 27 cm/sec - % stenosis 0-15% 3.3. Distal Segment: Peak systolic velocity 48 cm/sec: End-diastolic velocity 12 cm/sec - % stenosis 0-15% 4. External Carotid Artery: No significant focal plaque formation. Peak systolic velocity 56 cm/sec 5. ICA/CCA Ratio: 1.5 LEFT CAROTID ARTERIES: 1. Common Carotid Artery: No significant focal plaque formation of the left common carotid artery. Maximum Peak Systolic velocity: 82 cm/sec: End-diastolic velocity 17 cm/sec. 2. Carotid Bifurcation: plaque formation. Maximum Peak Systolic velocity: 50 cm/sec: End-diastolic velocity 12 cm/sec. 3. Internal Carotid Artery: Plaque description: 3.1. Proximal Segment: Peak systolic velocity 59 cm/sec: End-diastolic velocity 15 cm/sec - % stenosis 0-15% 3.2. Middle Segment: Peak systolic velocity 65 cm/sec: End-diastolic velocity 17 cm/sec - % stenosis 0-15% 3.3. Distal Segment: Peak systolic velocity 111 cm/sec: End-diastolic velocity 26 cm/sec - % stenosis 0-15% 4. External Carotid Artery: No significant focal plaque formation. Peak systolic velocity 82 cm/sec 5. ICA/CCA Ratio: 1.4 VERTEBRAL ARTERIES: 1. Right Vertebral Artery: The right vertebral artery flow direction is antegrade. 2. Left Vertebral Artery: The left vertebral artery flow direction is antegrade. OTHER FINDINGS: 1. Right Brachial Blood pressure: 162 mmHg. 2. Left Brachial Blood pressure: mmHg. 3. No atherosclerotic calcification present IMPRESSION: RIGHT: Duplex scan does not suggest hemodynamically significant stenosis of the right extracranial carotid arteries. LEFT: Duplex scan does not suggest hemodynamically significant stenosis of the left extracranial carotid arteries.
[2018-10-25 13:21] VITALS: BP 126/80; PULSE 88
== END 2018-10-25 13:27 | disposition home or self-care (01) | DRG 312 ==
LOC: C.ER 19:26 → C.9E 21:32 → C.9I 22:21 → C.5S 10-23 23:12
PROVIDERS: ADMIT Internal Medicine; ATTEND Internal Medicine
DX: R55 Syncope and collapse (principal); I69.339 Monoplegia of upper limb following cerebral infarction affecting unspecified side; I10 Essential (primary) hypertension; J44.9 Chronic obstructive pulmonary disease, unspecified; K59.00 Constipation, unspecified; R29.6 Repeated falls; R47.81 Slurred speech; E78.00 Pure hypercholesterolemia, unspecified; E11.9 Type 2 diabetes mellitus without complications; E78.5 Hyperlipidemia, unspecified; Z79.84 Long term (current) use of oral hypoglycemic drugs; Z86.711 Personal history of pulmonary embolism; Z87.891 Personal history of nicotine dependence; Z91.81 History of falling